=== PATIENT | male | born 1985 | race Caucasian/White ===

== ENCOUNTER → 2016-07-13 19:27 | Outpatient (CLI) | payer BC | END | disposition home or self-care (01) | LOC: D.SLEEP 06-23 20:00 | DX: G47.30 Sleep apnea, unspecified (principal) ==

== ENCOUNTER → 2016-07-30 19:38 | Outpatient (CLI) | payer BC | END | disposition home or self-care (01) | LOC: D.SLEEP 19:38 | DX: G47.33 Obstructive sleep apnea (adult) (pediatric) (principal) ==

== ENCOUNTER → 2018-06-18 14:47 | Outpatient (CLI) | payer OTHER ==
--- NOTE | 2018-06-24 15:26 | ST ---
PATIENT:CRAIG LIU MEDICAL RECORD: [id number] SEX: M LOCATION:[facility] ORDER #: ADMISSION DATE: 06/18/18 AGE OF PATIENT: 32 REFERRING PHYSICIAN: INTERPRETING PHYSICIAN: LANETTE ESCOBEDO MD DATE OF SERVICE: 06/18/2018 Treadmill Stress Test Exercised for 7 minutes and 40 seconds on Jose protocol, maximum heart rate 174 beats per minute, greater than 85% of maximum predicted. No ECG change in ischemia. No symptoms of ischemia. Normal blood pressure response on exercise. No arrhythmias noted. Fair to poor exercise tolerance. TRANSINT:[id number] Voice Confirmation ID: [id number] DOCUMENT ID: [id number] LANETTE ESCOBEDO MD at 1526 CC: [id number] DICTATION DATE: 06/20/18 1526 DIRECTOR OF OPERATIONS SUPPORT: 06/21/18 0015 DEP CLI 06/18/[address] [id number]
== END | disposition home or self-care (01) ==
LOC: D.HCCARDIO 06-12 15:30
DX: R07.9 Chest pain, unspecified (principal)